=== PATIENT | female | born 1955 | race Caucasian/White ===

== ENCOUNTER 2016-08-18 07:05 | Emergency (ER) | payer OTHER ==
[2016-08-18 07:22] VITALS: BP 104/77
--- NOTE | 2016-08-18 07:47 | UC ---
Respiratory Complaint HPI - HPI Summary HPI Summary: 3 DAYS OF DEEP COUGH AND CHEST CONGESTION. HAS BODY ACHES, CHILLS AND HOARSENESS. NO ST, EAR PAIN, N/V/D. IS USUALLY VERY HEALTHY. HERE FOR [facility] . - History of Current Complaint Chief Complaint: UCRespiratory Stated Complaint: CHEST CONGESTION Time Seen by Provider: 08/18/16 07:35 Hx Obtained From: Patient Onset/Duration: Gradual Onset, Lasting Days, Still Present Timing: Constant Severity Initially: Moderate Severity Currently: Moderate Pain Intensity: 0 Pain Scale Used: 0-10 Numeric Character: Cough: Productive Aggravating Factors: Nothing Alleviating Factors: Nothing Associated Signs And Symptoms: Positive: Chills, URI, Nasal Congestion, Hoarseness. Negative: Dyspnea, Fever, Wheezing, Hemoptysis, Dizziness, Calf Pain, Calf Swelling, Sinus Discomfort - Allergies/Home Medications Allergies/Adverse Reactions: Allergies Allergy/AdvReac Type Severity Reaction Status Date / Time Hydroxychloroquine Allergy Rash Verified 08/18/16 07:15 [From Plaquenil] Prednisone Allergy Rash Verified 08/18/16 07:15 Tetracycline Allergy Rash Verified 08/18/16 07:15 Home Medications: Home Medications Ibuprofen [Advil] 200 mg PO Q6H PRN 08/18/16 [History Confirmed 08/18/16] PMH/Surg Hx/FS Hx/Imm Hx Previously Healthy: Yes - Surgical History Surgical History: Yes Surgery Procedure, Year, and Place: tonsillectomy, knee surgery, polyp removed throat. - Family History Known Family History: Positive: Hypertension - Social History Alcohol Use: Occasionally Substance Use Type: None Smoking Status (MU): Never Smoked Tobacco Review of Systems Constitutional: Chills ENT: Nasal Discharge Respiratory: Cough Cardiovascular: Negative Gastrointestinal: Negative All Other Systems Reviewed And Are Negative: Yes Physical Exam Triage Information Reviewed: Yes Appearance: Well-Appearing, No Pain Distress, Well-Nourished Vital Signs: Initial Vital Signs Temp 97.4 F 08/18/16 07:16 Pulse 83 08/18/16 07:16 Resp 16 08/18/16 07:16 BP 104/77 08/18/16 07:16 Pulse Ox 97 08/18/16 07:16 Vital Signs Reviewed: Yes Eyes: Positive: Conjunctiva Clear ENT: Positive: Hearing grossly normal, Pharynx normal, TMs normal, Muffled/ hoarse voice Neck: Positive: Supple, Nontender, No Lymphadenopathy Respiratory Exam: Normal Cardiovascular Exam: Normal Abdomen Description: Positive: Soft Musculoskeletal: Positive: No Edema Neurological: Positive: Alert Psychological: Positive: Normal Response To Family, Age Appropriate Behavior Skin: Negative: rashes UC Diagnostic Evaluation - Laboratory O2 Sat by Pulse Oximetry: 97 Respiratory Course/Dx - Differential Dx/Diagnosis Provider Diagnoses: ACUTE BRONCHITIS/LARYNGITIS Discharge - Discharge Plan Condition: Stable Disposition: HOME Prescriptions: Azithromyxin PHU (NF) [Z-Phu (Zithromax) 250 mg tabs #6] 2 tab PO .TODAY, THEN 1 DAILY #6 tab guaiFENesin/CODIEN 100MG-10MG* [Robitussin AC 100Mg-10Mg*] 5 - 10 ml PO Q6H PRN #150 ml MDD 40ML PRN Reason: Cough Patient Education Materials: Laryngitis (ED), Acute Bronchitis (ED) Additional Instructions: SEEK FOLLOW-UP HERE OR WITH YOUR PCP BACK IN [place] IF YOU ARE NOT IMPROVING EXPECTED.
== END 2016-08-18 07:57 | disposition home or self-care (01) ==
LOC: UCEAST 07:05
DX: J20.9 Acute bronchitis, unspecified (principal); J04.0 Acute laryngitis; Z88.8 Allergy status to other drugs, medicaments and biological substances
CPT/HCPCS: 99202; G0463